=== PATIENT | female | born 1985 | race Hispanic/Latino ===

== ENCOUNTER 2020-01-20 07:21 | Inpatient (IN) | payer OTHER, SELFPAY ==
[2020-01-20] VITALS (65 sets, daily range): BP systolic 94–147; BP diastolic 58–102; PULSE 70–101; RESP 13–17; TEMP 36.2–36.7; O2SAT 99–100; BMI 38.9
--- NOTE | 2020-01-20 08:11 | LDADM ---
This patient, Ariana Fontana, was admitted to Labor/Delivery/Recovery 119 on 01/20/20 at 07:21. Plans for labor, pain management and were discussed with patient. Patient/family oriented to hospital policies and general routines including ID bracelet, bed and alarms, visiting hours, pain management, procedures, bathroom and other care routines, personal items, smoking policy, room service/diet and guest tray routines, infant security routines, and visiting hours. Patient/Family are encouraged to report perceived risks to care and to ask questions if they do not understand what they are told or what they should do. See OBIX for further documentation.
[2020-01-20 08:23] LABS: Basophils Percent Auto 0.2 % (0.2-1.2); Eosinophils Absolute Auto 0.1 K/mm3 (0-0.3); Eosinophils Percent Auto 1.4 % (0-4.4); Hematocrit 32.7 % (37.0-47.0); Hemoglobin 10.3 g/dL (12.0-15.0); Immature Granulocyte Absolute 0.06 K/mm3 (0.00-0.031); Immature Granulocyte Percent A 0.7 % (0-0.5); Lymphocytes Absolute Auto 2.46 K/mm3 (0.9-3.2); Lymphocytes Percent Auto 29.4 % (18.3-44.2); Mean Corpuscular HGB Conc 31.5 g/dl (32-36); Mean Corpuscular Hemoglobin 26.7 pg (26-34); Mean Corpuscular Volume 84.7 fl (80-100); Mean Platelet Volume 9.9 fl (7.4-10.4); Monocytes Absolute Auto 0.7 K/mm3 (0.1-0.6); Monocytes Percent Auto 8.1 % (2.6-8.5); Neutrophils Percent Auto 60.2 % (45.5-73.1); Platelet Count Result 456 k/mm3 (150-375); Red Blood Count 3.86 M/mm3 (4.2-5.4); Red Cell Distribution Width 15.7 % (11.5-14.5); White Blood Count 8.4 K/mm3 (4.5-10.0)
--- NOTE | 2020-01-20 08:26 | P.PNAN_ITS ---
Anes - Initial Pre Proc Eval Procedure: Operation Date: 01/20/20 09:00 Proposed Procedures p Repeat Section - Shashank Sagastume MD Date/Time: 01/20/20 08:26 Surgeon: Shashank Sagastume MD Pre Op Diagnosis: C SECTION Patient Data Age: 34 Gender: F Height: Weight: Last Vital Signs Pulse 91 01/20/20 08:16 BP 123/85 01/20/20 08:16 Laboratory Tests 01/20/20 01/20/20 08:17 08:17 WBC 8.4 K/mm3 K/mm3 (4.5-10.0) RBC 3.86 M/mm3 L M/mm3 (4.2-5.4) Hgb 10.3 g/dL L g/dL (12.0-15.0) Hct 32.7 % L % (37.0-47.0) MCV 84.7 fl fl (80-100) MCH 26.7 pg pg (26-34) MCHC 31.5 g/dl L g/dl (32-36) RDW 15.7 % H % (11.5-14.5) Plt Count 456 k/mm3 H k/mm3 (150-375) MPV 9.9 fl fl (7.4-10.4) Immature Gran % (Auto) 0.7 % H % (0-0.5) Neut % (Auto) 60.2 % % (45.5-73.1) Lymph % (Auto) 29.4 % % (18.3-44.2) [place] % (Auto) 8.1 % % (2.6-8.5) Eos % (Auto) 1.4 % % (0-4.4) Baso % (Auto) 0.2 % % (0.2-1.2) Lymph # (Auto) 2.46 K/mm3 K/mm3 (0.9-3.2) [place] # (Auto) 0.7 K/mm3 H K/mm3 (0.1-0.6) Eos # (Auto) 0.1 K/mm3 K/mm3 (0-0.3) Baso # (Auto) 0.0 K/mm3 K/mm3 (0.0-0.1) Abs Immat Gran (auto) 0.06 K/mm3 H K/mm3 (0.00-0.031) Absolute Neuts (auto) 5.0 K/mm3 K/mm3 (1.3-6.7) Absolute Nucleated RBC 0.0 K/mm3 K/mm3 (0.0-0.012) Nucleated RBC % 0.0 % % (0.0-0.2) RPR Pending Patient hx anesthesia problems: none Family hx anesthesia problems: none PMFSH Surgical History Surgical History (Updated 01/20/20 @ 08:26 by Cecil Motta MD) Previous delivery, delivered Anes - Eval Final PreProcedure Day of Procedure 01/20/20 08:26 Patient weight: normal Heart: regular rate and rhythm Lungs: clear to auscultation Airway: Mallampati scale class II Neurological: alert and oriented Last oral intake: >/= 8 hours ASA classification: II Emergent: no Anesthetic plan: proceed Anesthesia type and monitoring: regional spinal and standard monitoring Other findings: GA as back-up discussed thru rodding machine tender Informed Consent: The patient's anesthetic plan of spinal with GA as a back-up and its attendant risks and benefits were discussed with the patient/family and rodding machine tender. Questions were solicited and answers provided to the satisfaction of the patient/family and rodding machine tender.
[2020-01-20] MEDS: LACTATED RINGERS 1,000 ML 999 ML IV CONT (08:40)
--- NOTE | 2020-01-20 09:04 | P.HP_ITS ---
H&P: HPI History of Present Illness Chief complaint: C SECTION Narrative: Ariana Fontana is a 34 year old female 4 para 2011 who presents for repeat section. She is 39 weeks and 2 days by early ultrasound. care has been with Dr. Lyle Cobian in [facility]. No specific concerns or questions during her care/ records are on the chart. Review of Systems Constitutional: Constitutional: Reports no additional constitutional complaints Respiratory: Respiratory: Reports no additional respiratory complaints Gastrointestinal: Gastrointestinal: Reports no additional gastrointestinal complaints [facility] Surgical History Surgical History Previous delivery, delivered Social History Social History Smoking status: Never smoker Substance use: never Gender identity (if verbalized by the patient): Female Spiritual care concerns: No Meds Home Medications and Allergies Allergies Allergy/AdvReac Type Severity Reaction Status Date / Time No Known Allergies Allergy Verified 01/20/20 08:53 Vital Signs Vital Signs - 24 hr 01/20/20 08:01 01/20/20 08:02 01/20/20 08:16 Pulse Rate 88 89 91 Blood Pressure 117/81 119/84 123/85 Exam Const: General: healthy appearing Nutritional Appearance: average body habitus Resp: Auscultation: clear to auscultation bilaterally Cardio: Rate: regular rate Rhythm: regular rhythm GI: Inspection: other (FH 39cm/FHT 130) : External Female Exam: normal external appearance H&P: Results Labs Labs: Short CBC 01/20/20 Range/Units 08:17 WBC 8.4 (4.5-10.0) K/mm3 Hgb 10.3 L (12.0-15.0) g/dL Hct 32.7 L (37.0-47.0) % Plt Count 456 H (150-375) k/mm3 Assessment and Plan Additional Plan 1. Thirty-nine week 2 day into 2. Prior section x2 Plan is for repeat low transverse section. We have discussed tubal ligation and she does not desire.
--- NOTE | 2020-01-20 09:55 | PM.OBPRVD ---
OB - Delivery Note Procedure Delivery date: 01/20/20 Procedure: Procedures Operation Date: 01/20/20 09:00 <No data on this case meets the specified criteria> events: Previous Route of delivery: Specimen: No Estimated blood loss (mL): 400 Anesthesia type: Spinal Disposition: PACU Narrative: Patient prepped and draped the usual manner for this procedure a Pfannenstiel incision was made. Incision was then carried through the subcutaneous tissue to the fascia which was then extended bilaterally the skin incision. Graphical the clamps and from muscles. Peritoneum was entered without difficulty and bladder flap was developed. Uterus scored and extended lower segment. Vertex was delivered section naso-oropharynx arrest baby was delivered. Cord was clamped cut and delivered manually. Uterus was exteriorized cleared of membranes and clots and closed using 0 Monocryl in a running interlocking manner with good approximation hemostasis noted. Uterus returned to the abdomen there was 1 small area which was readily rhythm hemostatic using a [id number] suture on the uterine incision. Fascia was then approximated 0 Vicryl suture left angle to midline right angle to midline a running manner. Subcutaneous tissue approximated 0 plain suture. Deidra used to approximate skin edges. Patient tolerated procedure well sent to recovery in a stable condition. Baby Weeks of gestation at delivery: 39 gender: Male Weight (pounds): 6 Weight (ounces): 10 presentation: vertex Placenta delivery description: Manual Removal cord vessel description: 3 Vessels score one minute: 8 score five minutes: 9
[2020-01-20 10:56] LABS: Rapid Plasma Reagin Non-Reactive (NonReactive)
--- NOTE | 2020-01-20 16:23 | PC.NURSE ---
Patient transferred to post room #282 via stetcher. Used translater to orient patient to unit, room, information board, rooming in, admission packet and security measures. Patient verbalizes understanding.
[2020-01-20] MEDS: KETOROLAC 30 MG/ML VIAL (*BKC) IV PUSH (17:08)
[2020-01-20] MEDS: DEXTROSE 5%/0.45% SOD CHL 1,000 ML 125 ML IV CONT (18:08)
[2020-01-21 00:55] VITALS: BP 101/61; PULSE 80; RESP 14; TEMP 36.4; O2SAT 99
[2020-01-21] MEDS: KETOROLAC 30 MG/ML VIAL (*BKC) IV PUSH (01:56)
[2020-01-21 04:45] VITALS: BP 90/55; PULSE 82; RESP 12; TEMP 36.4; O2SAT 98
[2020-01-21 05:52] LABS: Basophils Percent Auto 0.4 % (0.2-1.2); Eosinophils Absolute Auto 0.1 K/mm3 (0-0.3); Eosinophils Percent Auto 0.8 % (0-4.4); Hematocrit 28.2 % (37.0-47.0); Immature Granulocyte Absolute 0.03 K/mm3 (0.00-0.031); Immature Granulocyte Percent A 0.3 % (0-0.5); Lymphocytes Absolute Auto 2.63 K/mm3 (0.9-3.2); Mean Corpuscular HGB Conc 31.9 g/dl (32-36); Mean Corpuscular Hemoglobin 27.2 pg (26-34); Mean Corpuscular Volume 85.2 fl (80-100); Mean Platelet Volume 10.2 fl (7.4-10.4); Neutrophils Absolute Auto 7.2 K/mm3 (1.3-6.7); Neutrophils Percent Auto 65.5 % (45.5-73.1); Platelet Count Result 393 k/mm3 (150-375); Red Blood Count 3.31 M/mm3 (4.2-5.4); White Blood Count 10.9 K/mm3 (4.5-10.0)
[2020-01-21 07:00] VITALS: BP 105/70; PULSE 80; RESP 16; TEMP 37.2; O2SAT 100
[2020-01-21] MEDS: MULTIVIT/MIN/PREN/FOL AC/IRON TABLET 1 TAB PO (07:24)
[2020-01-21] MEDS: POLYSACCHARIDE IRON COMPLEX 150 MG CAPSULE PO ×2 (07:24→17:24)
[2020-01-21] MEDS: IBUPROFEN 600 MG TABLET PO ×3 (07:24→20:31)
[2020-01-21] MEDS: DOCUSATE SODIUM 100 MG CAPSULE PO ×2 (07:24→14:41)
--- NOTE | 2020-01-21 09:48 | WPDANLDPN2 ---
Anes-Prog Note L&D Date/Time: 01/21/20 09:48 Comfortable throughout: section Neuraxial method: spinal Epidural/Spinal procedure site: clean & non-tender Neuro status: Neuro function grossly intact. Cardiovascular status: normal Respiratory status: normal Airway patency: baseline Mental status: baseline Post-Op hydration status: normal Vital Signs: Last Vital Signs Temp 37.2 C 01/21/20 07:00 Pulse 80 01/21/20 07:00 Resp 16 01/21/20 07:00 BP 105/70 01/21/20 07:00 Pulse Ox 100 01/21/20 07:00 I/O: Intake & Output 01/20/20 01/21/20 01/21/20 23:59 07:59 15:59 Intake Total 550 240 Output Total 750 1700 Balance -200 -1460 Post-procedural complaints: none Patient feedback: Patient satisfied with anesthetic care.
--- NOTE | 2020-01-21 09:48 | WPDANLDNPN2 ---
Anes-Prog Note L&D-Neuraxial Date/Time: 01/21/20 09:48 Neuraxial medications: intrathecal PF morphine Opiod-related complaints: none Patient feedback: Patient satisfied with post-operative pain management.
--- NOTE | 2020-01-21 12:40 | PM.OBPNVD ---
OB - PN: Subj Subjective Date/time seen: 01/21/20 12:40 Ariana is a 34yo now P3013 s/p rLTCS, POD#1 She reports doing well. She is tolerating regular diet w/o N/V. She has ambulated w/o s/sx of anemia. She has passed flatus and voided spontaneously. She reports normal vaginal bleeding. Her pain is controlled with pain medications. She is bottle feeding. She does not desire a circumcision for her son. OB - PN: Obj Data Labs CBC & Chem 7: 01/21/20 04:54 Labs: Laboratory Results - last 24 hr 01/21/20 04:54 WBC 10.9 H RBC 3.31 L Hgb 9.0 L Hct 28.2 L MCV 85.2 MCH 27.2 MCHC 31.9 L RDW 16.0 H Plt Count 393 H MPV 10.2 Immature Gran % (Auto) 0.3 Neut % (Auto) 65.5 Lymph % (Auto) 24.0 [place] % (Auto) 9.0 H Eos % (Auto) 0.8 Baso % (Auto) 0.4 Lymph # (Auto) 2.63 [place] # (Auto) 1.0 H Eos # (Auto) 0.1 Baso # (Auto) 0.0 Abs Immat Gran (auto) 0.03 Absolute Neuts (auto) 7.2 H Absolute Nucleated RBC 0.0 Nucleated RBC % 0.0 OB - PN A/P Plan day: 1 Plan: routine care Comments: - routine post-op care; meeting milestones - labs/vitals/exam stable - ye to be removed in 7-10 days - pain meds PRN - regular diet - ambulation encouraged - bottle feeding Time Spent With Patient Time: Total time spent is greater than 50% in coordination of care (as documented) at patient's floor/unit and/or counseling patient: Review of Systems Review of Systems: All systems reviewed & are unremarkable except as noted in HPI and below Exam Const: General: comfortable, no acute distress, alert and awake Resp: Effort & Inspection: normal respiratory effort Auscultation: clear to auscultation bilaterally Cardio: Rate: regular rate GI: Auscultation: normal bowel sounds Other: incision covered with clean bandage : Other: normal lochia noted on pad Psych: Appearance: grossly normal and well kempt Affect: normal affect Attitude: cooperative
[2020-01-21 20:20] VITALS: BP 118/59; PULSE 89; RESP 14; TEMP 36.9; O2SAT 98
[2020-01-22] MEDS: IBUPROFEN 600 MG TABLET PO ×2 (05:55→12:54)
[2020-01-22 08:30] VITALS: BP 126/75; PULSE 92; RESP 18; TEMP 37.2; O2SAT 97
[2020-01-22] MEDS: DOCUSATE SODIUM 100 MG CAPSULE PO (08:36)
[2020-01-22] MEDS: POLYSACCHARIDE IRON COMPLEX 150 MG CAPSULE PO (08:36)
[2020-01-22] MEDS: MULTIVIT/MIN/PREN/FOL AC/IRON TABLET 1 TAB PO (08:36)
--- NOTE | 2020-01-22 09:05 | PM.OBPNVD ---
OB - PN: Subj Subjective Date/time seen: 01/22/20 09:05 Ariana is a 34yo now P3013 s/p rLTCS, POD#2 She reports doing well. She is tolerating regular diet w/o N/V. She has ambulated w/o s/sx of anemia. She has not passed flatus today and feels bloated. She is voiding spontaneously. She reports normal vaginal bleeding. She reports pain; but states it is significantly better with pain medications. She is bottle feeding. She desires to be discharged home today. No CP, GOLDSMITH, SOB, vision changes, fever, chills. OB - PN: Obj Data Labs CBC & Chem 7: 01/21/20 04:54 OB - PN A/P Plan day: 2 Plan: routine care and discharge home Comments: - routine post-op care; meeting all milestones - labs/vitals/exam stable - ye to be removed in 5 days-- pt to make appt for removal - pain meds PRN-- rx's sent to pharmacy - regular diet-- ok to give simethicone and rectal suppository - ambulation encouraged - bottle feeding - ER return precautions reviewed. No heavy lifting >10lbs and pelvic rest x6 weeks Time Spent With Patient Time: Total time spent is greater than 50% in coordination of care (as documented) at patient's floor/unit and/or counseling patient: Review of Systems Review of Systems: All systems reviewed & are unremarkable except as noted in HPI and below Exam Const: General: comfortable, no acute distress, alert and awake Resp: Effort & Inspection: normal respiratory effort Auscultation: clear to auscultation bilaterally Cardio: Rate: regular rate GI: Auscultation: normal bowel sounds Other: mildly distended, soft, appropriately tender to palpation, pfannenstiel incision, clean, dry, intact, closed with ye, no surrounding erythema or induration : Other: normal lochia Psych: Appearance: grossly normal and well kempt Attitude: cooperative
--- NOTE | 2020-01-22 10:59 | PC.NURSE ---
Patient viewed the discharge video Mother & Baby Care, The First Two Weeks . Patient was given the opportunity and encouraged to ask questions. Patient verbalized understanding of information shared and has been given the mother/baby guide for home reference.
--- NOTE | 2020-01-24 09:58 | PM.OBDSVD ---
OB - DS: Summary OB Procedures : None OB Procedures Intrapartum: OB Procedures: : None Peripartum Data Procedures: Procedures Operation Date: 01/20/20 09:00 Actual Procedures Side Surgeon p Repeat Section Shashank Sagastume MD Time Spent with Patient Time attestation: Total time spent providing and/or coordinating discharge services: Discharge Plan Discharge Attending physician on discharge: Ani Jacob Discharging Clinician: Ani Jacob Patient Disposition: Home, Self-Care Activity: pelvic rest and other - see discharge instructions Diet: regular Wound Care Instructions: other - see discharge instructions Discharge Instructions: No levante mas 10 libras para 6 semanas, y poner nada en la vagina para 6 semanas. Regreso a la kamaljit de emergencia tiene fiebre, nauseas, vomitos, delor de florence, cambios en la vision, o sangrando vaginal mucho. Necesitas eliminacion de grapas en 5 felder (sana de Marzo). Por favor, llama la oficina para programar freddy braeden. Education: Mom and Baby Guide Given to: Mother Follow-Up: Call your delivering provider's office for an appointment to be seen in: Staple removal January 25, call for appointment Mom and baby should come to the [facility] for the follow-up appointment. Appointment Date/Time: January 24, 2020 at 8:00 am What to expect at your follow-up visit: Physical Assessment Call [phone] if you are unable to keep your appointment time. BREAST CARE: 1. Wear a snug supportive bra. Bottle Feeding: A. May apply ice packs ABDOMINAL INCISION: (if applicable) 1. Allow incision to air dry 2. Do NOT use lotions for powders on your incision 3. When showering, allow soap and water to run over the incision, but do not wash incision EPISIOTOMY/PERINEAL CARE: 1. Change your pad frequently throughout the day 3. No tub baths until seen by your physician - You may shower ACTIVITY: 1. Rest as much as possible. 2. Do not exercise or lift anything heavier than your baby (such as laundry or other children.) 3. Avoid stairs or driving as much as possible. 4. Do not put anything into the vagina. No douching, tampons, or sexual activity until seen by physician. NOTIFY PHYSICIAN IF YOU HAVE ANY QUESTIONS OR IF ANY OF THE FOLLOWING SYMPTOMS OCCUR: 1. If your incision becomes red, swollen, or more painful than what you have experienced in the hospital. 2. If your vaginal bleeding becomes foul smelling. 3. If your vaginal bleeding becomes more heavy than a period or if your bleeding changes from pink to bright red. However, you may pass an occasional walnut-sized clot once or twice for the first week . 4. If you experience a sharp, shooting pain in you calves. 5. If you discover a hard, reddened area on your breast or if you experience flu-like symptoms. DIET: 1. Eat regular, well-balanced meals. 2. Drink plenty of fluids daily. Patient Language: Hong Konger Stand Alone Forms: General Discharge Information Follow-up/Referrals: Ani Jacob MD [Physician] - Discharge Medications: New hydrocodone-acetaminophen 5-325 mg Tablet 1 tab PO Q4H PRN (Reason: Moderate Pain (4-6)) 3 Days Qty: 18 RF: 0 docusate sodium 100 mg Capsule 100 mg PO BID 30 Days Qty: 60 RF: 0 ibuprofen 600 mg Tablet 600 mg PO Q6H PRN (Reason: Cramping) 10 Days Qty: 40 RF: 0 Date of admission: 01/20/20 07:21 Primary Care Provider: Soy,Jose Foss Admitting Provider: Shashank Sagastume Discharge Date/Time: 01/22/20 13:15 Attending physician on admission: Shashank Sagastume Condition: Stable
--- NOTE | 2020-01-25 13:19 | PM.OBDSVD ---
DS: Diagnosis Admitting Diagnosis Admitting Diagnosis: Encounter for supervision of normal , unspecified, third trimester OB - DS: Summary OB Procedures : None OB Procedures Intrapartum: OB Procedures: : None Peripartum Data Procedures: Procedures Operation Date: 01/20/20 09:00 Actual Procedures Side Surgeon p Repeat Section Shashank Sagastume MD Time Spent with Patient Time attestation: Total time spent providing and/or coordinating discharge services: Discharge Plan Discharge Attending physician on discharge: Ani Jacob Consulting providers: Cecil Motta Discharging Clinician: Ani Jacob Patient Disposition: Home, Self-Care Activity: pelvic rest and other - see discharge instructions Diet: regular Wound Care Instructions: other - see discharge instructions Discharge Instructions: No levante mas 10 libras para 6 semanas, y poner nada en la vagina para 6 semanas. Regreso a la kamaljit de emergencia tiene fiebre, nauseas, vomitos, delor de florence, cambios en la vision, o sangrando vaginal mucho. Necesitas eliminacion de grapas en 5 felder (sana de Marzo). Por favor, llama la oficina para programar freddy braeden. Education: Mom and Baby Guide Given to: Mother Follow-Up: Call your delivering provider's office for an appointment to be seen in: Staple removal January 25, call for appointment Mom and baby should come to the [facility] for the follow-up appointment. Appointment Date/Time: January 24, 2020 at 8:00 am What to expect at your follow-up visit: Physical Assessment Call [phone] if you are unable to keep your appointment time. BREAST CARE: 1. Wear a snug supportive bra. Bottle Feeding: A. May apply ice packs ABDOMINAL INCISION: (if applicable) 1. Allow incision to air dry 2. Do NOT use lotions for powders on your incision 3. When showering, allow soap and water to run over the incision, but do not wash incision EPISIOTOMY/PERINEAL CARE: 1. Change your pad frequently throughout the day 3. No tub baths until seen by your physician - You may shower ACTIVITY: 1. Rest as much as possible. 2. Do not exercise or lift anything heavier than your baby (such as laundry or other children.) 3. Avoid stairs or driving as much as possible. 4. Do not put anything into the vagina. No douching, tampons, or sexual activity until seen by physician. NOTIFY PHYSICIAN IF YOU HAVE ANY QUESTIONS OR IF ANY OF THE FOLLOWING SYMPTOMS OCCUR: 1. If your incision becomes red, swollen, or more painful than what you have experienced in the hospital. 2. If your vaginal bleeding becomes foul smelling. 3. If your vaginal bleeding becomes more heavy than a period or if your bleeding changes from pink to bright red. However, you may pass an occasional walnut-sized clot once or twice for the first week . 4. If you experience a sharp, shooting pain in you calves. 5. If you discover a hard, reddened area on your breast or if you experience flu-like symptoms. DIET: 1. Eat regular, well-balanced meals. 2. Drink plenty of fluids daily. Patient Language: Russian Stand Alone Forms: General Discharge Information Follow-up/Referrals: Ani Jacob MD [Physician] - Discharge Medications: New hydrocodone-acetaminophen 5-325 mg Tablet 1 tab PO Q4H PRN (Reason: Moderate Pain (4-6)) 3 Days Qty: 18 RF: 0 docusate sodium 100 mg Capsule 100 mg PO BID 30 Days Qty: 60 RF: 0 ibuprofen 600 mg Tablet 600 mg PO Q6H PRN (Reason: Cramping) 10 Days Qty: 40 RF: 0 Date of admission: 01/20/20 07:21 Primary Care Provider: Fransisco,Jose Foss Admitting Provider: Shashank Sagastume Discharge Date/Time: 01/22/20 13:15 Attending physician on admission: Ani Jacob Condition: Stable
== END 2020-01-22 13:15 | disposition home or self-care (01) | DRG 540 ==
LOC: ANHOB2 01-22 10:21 → ANHLDR 01-24 12:05 → ANHOB2 01-24 12:05
PROVIDERS: Admitting Provider Obstetrics & Gynecology; PCP Obstetrics & Gynecology; Visit Provider Obstetrics & Gynecology
PROC: 10D00Z1 Extraction of Products of Conception, Low, Open Approach (ICD-10-PCS; CPT 59514; principal; 2020-01-20 09:00)
DX: O34.211 Maternal care for low transverse scar from previous cesarean delivery (principal); O99.824 Streptococcus B carrier state complicating childbirth; Z3A.39 39 weeks gestation of pregnancy; Z37.0 Single live birth
CPT/HCPCS: 36415; 85025; 86592; 86850; 86900; 86901; A9270; J0131; J1885; J2274; J2590; J3010; J7120

== ENCOUNTER 2021-04-25 11:11 | Emergency (ER) | payer OTHER, SELFPAY ==
--- NOTE | 2021-04-25 11:21 | ED.GENADULT ---
HPI - General Adult General Chief complaint: Wound/Laceration Stated complaint: The toenail on foot is ingrown Time Seen by Provider: 04/25/21 11:21 Source: patient, RN notes reviewed and slag worker (heladio-Nikita) Mode of arrival: ambulatory Limitations: language barrier History of Present Illness HPI narrative: 36-year-old female presents with complaints of LT foot and great toe with tenderness for months. Ariana reports attempting to remove ingrown toenail with a pair of scissors without success. ?Pain throughout bottom of foot and increases with walking. Believes ingrown toenail is causing great toe and foot pain. ?No medication treatment. No known injury. ?Wears flat shoes mostly. ?Denies redness. Denies numbness or tingling, or weakness. Denies fever or chills. ?Denies immobility. ?Exacerbation is movement and bearing weight. ?No relieving factors. No break in skin or drainage. ?Denies history of MRSA. ?Immunizations up-to-date. ?LMP 6 months ago due to Depo-Provera. Remains active. The patient reports she has not been diagnosed with COVID-19. ?The patient reports she received the Laith-Laith COVID-19 vaccine. ?The patient reports she is not waiting for the results of a COVID-19 lab test. ?The patient reports she does not have a new or worsening cough or shortness of breath. Denies chest pain. ?The patient reports she does not have any rhinorrhea, congestion, sore throat, and diarrhea. Denies recent traveling. ?Denies concerns for COVID-19 or exposures. ?At this time, the patient is not suspected of having COVID-19. Some parts of this dictation were generated by voice recognition software and may contain typographical and/or grammatical inaccuracies. Related Data Home Medications Medication Instructions Recorded Confirmed Depo-Provera Contraceptive 04/25/21 Allergies Allergy/AdvReac Type Severity Reaction Status Date / Time No Known Allergies Allergy Verified 01/20/20 08:53 Review of Systems Review of Systems: Narrative: CONSTITUTIONAL: Denies fever, chills, sweats. EYES: Denies visual changes, redness, discharge. ENT: Denies rhinorrhea, congestion, sore throat, otalgia. CARDIOVASCULAR: Denies chest pain, palpitations, edema. RESPIRATORY: Denies dyspnea, wheezing, cough GASTROINTESTINAL: Denies abdominal pain, nausea, vomiting, diarrhea. GENITOURINARY: Denies dysuria, hematuria, abnormal discharge SKIN: Denies rash or itching. MUSCULOSKELETAL: Denies acute back pain or myalgia. Complains of LT foot and great toe tenderness. Denies drainage, swelling, warmth, and redness. NEUROLOGIC: Denies numbness or focal weakness. PSYCHIATRIC: Denies anxiety or depression. All other systems reviewed are negative, except as documented in HPI and below. [facility] Past Medical History Medical History (Updated 04/26/21 @ 00:00 by Jammie Bell) delivery delivered Surgical History Surgical History Previous delivery, delivered Family History Family History (Updated 04/25/21 @ 12:01 by VIRGEN Spears) Father , murdered Family history unknown Mother Alive and well Social History Social History (Updated 04/25/21 @ 12:02 by VIRGEN Spears) Smoking status: Never smoker Tobacco type: cigarettes Second hand tobacco smoke exposure: No Alcohol intake: never Substance use: never Living arrangements: with family Occupation/Education: unemployed Gender identity (if verbalized by the patient): Female Sexual Orientation (if Verbalized by the Patient): Straight or Heterosexual Spiritual care concerns: No Comments At time of signature, agree with the nurse past medical, surgical, social, and family history. There is no relevant family history pertinent to the presenting complaint. Exam Narrative: Exam Narrative: GENERAL: This is a well-nourished, well-developed patient, in no apparent distress. Talk
[2021-04-25 11:22] VITALS: BP 119/81; PULSE 82; RESP 16; TEMP 37.2; O2SAT 99
== END 2021-04-25 12:01 | disposition home or self-care (01) ==
PROVIDERS: Emergency Provider Nurse Practitioner Family
DX: M77.42 Metatarsalgia, left foot (principal)
CPT/HCPCS: 99213; G0463

== ENCOUNTER 2023-07-04 17:00 | Emergency (ER) | payer OTHER, SELFPAY ==
--- NOTE | ~2023-07-04 | US_ITS ---
EXAMINATION: US OB <=14 wk fetus w TV DATE: 07/04/2023 19:58 INDICATION: Vaginal bleeding. . TECHNIQUE: Real-time transabdominal and transvaginal pelvic ultrasound was performed. COMPARISON: None. FINDINGS: TRANSABDOMINAL ULTRASOUND: The uterus measures 13.9 x 4.3 x 6.7 cm. The right ovary measures 2.0 x 2 .3 x 1.5 cm. The left ovary measures 2.1 x 2.1 x 1.4 cm. TRANSVAGINAL ULTRASOUND: There is a gestational sac in the cervix. The crown rump length measur es 7 mm, which correlates with an estimated gestational age of 6 weeks and 4 day(s). heart luca on is not identified by M-mode Doppler. There is no free fluid in the pelvis. IMPRESSION: 1. Failed in the cervix. Reviewed, dictated and finalized at location E. IMPRESSION: 1. Failed in the cervix.
[2023-07-04 17:06] VITALS: BP 140/82; PULSE 100; RESP 21; O2SAT 100
[2023-07-04 17:30] LABS: Basophils Absolute Auto 0.1 K/mm3 (0.0-0.1); Basophils Percent Auto 0.3 % (0.2-1.2); Eosinophils Absolute Auto 0.2 K/mm3 (0-0.3); Eosinophils Percent Auto 0.8 % (0-4.4); Hematocrit 37.5 % (37.0-47.0); Hemoglobin 12.4 g/dL (12.0-15.0); Immature Granulocyte Absolute 0.12 K/mm3 (0.00-0.031); Immature Granulocyte Percent A 0.5 % (0-0.5); Lymphocytes Percent Auto 23.3 % (18.3-44.2); Mean Corpuscular HGB Conc 33.1 g/dl (32-36); Mean Corpuscular Hemoglobin 30.2 pg (26-34); Mean Corpuscular Volume 91.5 fl (80-100); Mean Platelet Volume 9.2 fl (7.4-10.4); Monocytes Percent Auto 4.4 % (2.6-8.5); Neutrophils Absolute Auto 15.5 K/mm3 (1.3-6.7); Neutrophils Percent Auto 70.7 % (45.5-73.1); Platelet Count Result 481 k/mm3 (150-375); Red Cell Distribution Width 12.8 % (11.5-14.5); White Blood Count 21.9 K/mm3 (4.5-10.0)
[2023-07-04] MEDS: ONDANSETRON INJ 4 MG/2 ML VIAL (17:31)
[2023-07-04 17:38] LABS: Platelet Estimate Increased (Adequate)
[2023-07-04 17:39] LABS: Atypical Lymphocytes Present; Schistocytes None Seen (NORMAL)
[2023-07-04] MEDS: MORPHINE SULFATE (*CRX) 4 MG/ML INJ (17:40)
--- NOTE | 2023-07-04 17:47 | ED.PREGNANCY ---
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 Ongoing over the last 5 days. Associated with pelvic cramping. Reports she is about 11 weeks by LMP. She was seen at [facility], [place] yesterday and discharged with ciprofloxacin and [place]. She does not have a OB currently. Denies fever or vomiting. <SYEDA Ames Last Filed: 07/04/23 21:01> Related Data Home medications: Home Medications Medication Instructions Recorded Confirmed Depo-Provera Contraceptive 04/25/21 <SYEDA Ames Last Filed: 07/04/23 21:01> Allergies/Adverse reactions: Allergies Allergy/AdvReac Type Severity Reaction Status Date / Time No Known Allergies Allergy Verified 01/20/20 08:53 <SYEDA Ames Last Filed: 07/04/23 21:01> Review of Systems Review of Systems: CONSTITUTIONAL: Denies fever GASTROINTESTINAL: Reports abdominal pain, nausea. Denies vomiting GENITOURINARY: Denies dysuria <SYEDA Ames Last Filed: 07/04/23 21:01> All systems reviewed & are unremarkable except as noted in HPI and below <SYEDA Ames Last Filed: 07/04/23 21:01> [facility] Past Medical History Medical History: Medical History (Updated 07/05/23 @ 00:00 by Jammie Bell) delivery delivered <Yi Rodgers PA-C - Last Filed: 07/04/23 21:01> Surgical History Surgical History: Surgical History Previous delivery, delivered <Yi Rodgers PA-C - Last Filed: 07/04/23 21:01> Family History Family History: Family History (Updated 04/25/21 @ 12:01 by VIRGEN Spears) Father , murdered Family history unknown Mother Alive and well <Yi Rodgers PA-C - Last Filed: 07/04/23 21:01> Social History Social History: Social History (Updated 04/25/21 @ 12:02 by VIRGEN Spears) Smoking status: Never smoker Tobacco type: cigarettes Second hand tobacco smoke exposure: No Alcohol intake: never Substance use: never Living arrangements: with family Occupation/Education: unemployed Gender identity (if verbalized by the patient): Female Sexual Orientation (if Verbalized by the Patient): Straight or Heterosexual Spiritual care concerns: No <SYEDA Ames Last Filed: 07/04/23 21:01> Exam Narrative: GENERAL: Well-appearing, well-nourished, and in mild acute distress due to pain HEAD: Normocephalic, atraumatic. EYES: EOMI. CHEST: Clear to auscultation. No respiratory distress. No wheezes rales or rhonchi HEART: Regular rate and rhythm. No murmur heard. Normal peripheral pulses. ABDOMEN: Soft, nontender, nondistended, normal active bowel sounds. EXTREMITIES: Normal range of motion. No edema. SKIN: Warm, dry, no rash. NEURO: No focal deficits. Alert and oriented x3. PSYCH: Normal mood and affect PELVIC: Cervix is open, dark red blood blood and blood clots in the vaginal vault <Yi Rodgers PA-C - Last Filed: 07/04/23 21:01> Course Course Emergency Course: Patient and family updated on work-up and agree with plan of care <Yi Rodgers PA-C - Last Filed: 07/04/23 21:01> AUTOMATIC OVEN OPERATOR/PA Physician Supervision This is a was performed by both a physicia
[2023-07-04 17:53] VITALS: PULSE 103; RESP 19; O2SAT 99
[2023-07-04 18:01] VITALS: BP 124/79; PULSE 105; RESP 22; O2SAT 98
[2023-07-04 18:03] LABS: Beta HCG Quantitative 302.01 mIU/ML
[2023-07-04 18:06] VITALS: PULSE 108; RESP 19; O2SAT 98
--- NOTE | 2023-07-04 18:18 | PC.NURSE ---
Pt called out in pain, EDP notified of pain and pt request for pain medication.
[2023-07-04 18:27] VITALS: PULSE 114; RESP 22
--- NOTE | 2023-07-04 18:30 | PC.NURSE ---
ultra sound called in
--- NOTE | 2023-07-04 19:23 | PC.NURSE ---
Patient to Ultrasound
[2023-07-04 19:32] LABS: Alanine Aminotransferase 15 U/L (6-35); Albumin Level 3.9 g/dL (3.5-5.1); Alkaline Phosphatase 81 U/L (38-126); Anion Gap 10 mmol/L (8-16); Aspartate Amino Transferase 21 U/L (14-36); Bilirubin,Total 0.2 mg/dL (0.2-1.3); Blood Urea Nitrogen 10 mg/dL (7-17); Calcium 8.5 mg/dL (8.4-10.2); Carbon Dioxide 23 mmol/L (22-30); Chloride 101 mmol/L (98-107); Estimated Glomerular Filt Rate > 60; Glucose 118 mg/dL (65-110); Lipase 38 U/L (23-300); Potassium 3.2 mmol/L (3.4-5.0); Sodium 134 mmol/L (137-145)
[2023-07-04] MEDS: SODIUM CHLORIDE 0.9% IV 1,000 ML 999 ML IV CONT (20:39)
[2023-07-04] MEDS: IBUPROFEN IV 400 MG in SODIUM CHLORIDE 0.9% IV 100 ML 200 MG IVPB (21:14)
[2023-07-04] MEDS: POTASSIUM CHLORIDE 20 MEQ ER TABLET 40 MEQ PO (21:14)
[2023-07-04] MEDS: miSOPROStol 200 MCG TABLET 600 MCG BY MOUTH (22:16)
[2023-07-04 22:25] VITALS: BP 109/74; PULSE 91; RESP 16; TEMP 37.4; O2SAT 98
== END 2023-07-04 22:37 | disposition home or self-care (01) ==
PROVIDERS: Preventive Medicine Aerospace Medicine; Emergency Provider Physician Assistant
DX: O03.4 Incomplete spontaneous abortion without complication (principal); E87.6 Hypokalemia
CPT/HCPCS: 36415; 76801; 76817; 80053; 83690; 84702; 85025; 85461; 86850; 86900; 86901; 96361; 96365; 96375; 99284; A9270; J1741; J2270; J2405; J7030

== ENCOUNTER 2023-07-06 17:42 | Emergency (ER) | payer OTHER, SELFPAY ==
[2023-07-06] VITALS (10 sets, daily range): BP systolic 111–121; BP diastolic 69–83; PULSE 78; RESP 16; TEMP 36.7–36.9; O2SAT 98–100
--- NOTE | ~2023-07-06 | US_ITS ---
EXAMINATION: US pelvic complete w TV DATE: 07/06/2023 20:58 INDICATION: r/o retained products of conception TECHNIQUE: Multiple transabdominal and endovaginal sonographic images of the pelvis were obtained. COMPARISON: None. FINDINGS: Uterus: 8.5 x 4.5 cm. Heterogeneous and avascular endometrial and endocervical echogenic material jh t moves independently of the uterus and cervix. Endometrial complex measures 22 mm. Hypoechoic area i n the endometrial cavity in the distal ureters, unlikely to represent a retained gestational sac give n the size and location of the gestational sac in the prior study, possible focal hematoma with clot retraction. Right Ovary: 3.0 x 1.7 x 1.5 cm. Vascular flow is present. No adnexal mass Left Ovary: 2.9 x 2.2 x 1.5 cm. Vascular flow is present. No adnexal mass There is no free fluid in the pelvis. IMPRESSION: Possible retained abnormal gestational sac and pole. Endometrial cavity and endocervical echoge karen material likely representing hemorrhage/hematoma. Recommend continued close sonographic follow-up . Reviewed, dictated and finalized at location K. IMPRESSION: Possible retained abnormal gestational sac and pole. Endometrial cavity a nd endocervical echogenic material likely representing hemorrhage/hematoma. Rec ommend continued close sonographic follow-up.
[2023-07-06 18:34] LABS: Basophils Percent Auto 0.3 % (0.2-1.2); Eosinophils Absolute Auto 0.2 K/mm3 (0-0.3); Eosinophils Percent Auto 1.9 % (0-4.4); Hematocrit 34.1 % (37.0-47.0); Hemoglobin 10.9 g/dL (12.0-15.0); Immature Granulocyte Absolute 0.05 K/mm3 (0.00-0.031); Immature Granulocyte Percent A 0.4 % (0-0.5); Lymphocytes Absolute Auto 3.22 K/mm3 (0.9-3.2); Lymphocytes Percent Auto 28.2 % (18.3-44.2); Mean Corpuscular Hemoglobin 29.4 pg (26-34); Mean Corpuscular Volume 91.9 fl (80-100); Mean Platelet Volume 8.9 fl (7.4-10.4); Monocytes Absolute Auto 0.9 K/mm3 (0.1-0.6); Monocytes Percent Auto 7.7 % (2.6-8.5); Neutrophils Percent Auto 61.5 % (45.5-73.1); Platelet Count Result 461 k/mm3 (150-375); Red Blood Count 3.71 M/mm3 (4.2-5.4); Red Cell Distribution Width 12.9 % (11.5-14.5); White Blood Count 11.4 K/mm3 (4.5-10.0)
[2023-07-06 18:45] LABS: Platelet Estimate Increased (Adequate)
[2023-07-06 18:46] LABS: Atypical Lymphocytes Present; Schistocytes None Seen (NORMAL)
--- NOTE | 2023-07-06 22:11 | ED.FEMALEGU ---
HPI - Female Genitourinary General Chief complaint: Vaginal Bleeding <Marissa Damon PA-C - Last Filed: 07/07/23 03:21> Stated complaint: r/o miscarriage <SYEDA Shook Last Filed: 07/07/23 03:21> Time Seen by Provider: 07/06/23 19:21 <Marissa Damon PA-C - Last Filed: 07/07/23 03:21> History of Present Illness HPI Narrative: 38-year-old Faroese-speaking female, G5, P2, LMP 04/05 reports for evaluation for vaginal bleeding after being diagnosed with a miscarriage 8 days ago. Patient states she was approximately 11 weeks when she was diagnosed with a miscarriage. She reports having vaginal bleeding for 8 days, requiring her to change her pad 5 times per day. She denies bleeding through 1 pad per hour. She was evaluated in the emergency department on 07/04, the case was discussed with VP ANCILLARY on-call and the patient was provided a suppressed oral vaginal suppository. She followed up with an VP ANCILLARY [facility] who gave her oral misoprostol at 1300 today and advised her to come to [facility] for an ultrasound. The patient reported today with abdominal pain and cramping. She denies known fever, vomiting, urinary complaints, lightheadedness or dizziness, syncope, chest pain or shortness of breath. States she only came because her VP ANCILLARY advised her to come here for repeat ultrasound. <Marissa Damon PA-C - Last Filed: 07/07/23 03:21> Related Data Home medications: Home Medications Medication Instructions Recorded Confirmed Depo-Provera Contraceptive 04/25/21 <SYEDA Shook Last Filed: 07/07/23 03:21> Allergies/Adverse reactions: Allergies Allergy/AdvReac Type Severity Reaction Status Date / Time No Known Allergies Allergy Verified 01/20/20 08:53 <Marissa Damon PA-C - Last Filed: 07/07/23 03:21> Review of Systems Review of Systems: CONSTITUTIONAL: Denies fever, chills EYES: Denies visual changes, redness, or discharge. ENT: Denies rhinorrhea, congestion, sore throat, or otalgia. CARDIOVASCULAR: Denies chest pain, palpitations, or edema. RESPIRATORY: Denies cough or dyspnea. GASTROINTESTINAL: See HPI GENITOURINARY: Denies dysuria or hematuria. SKIN: Denies rash or itching. MUSCULOSKELETAL: Denies back pain, joint pain, or myalgia. NEUROLOGIC: Denies headache, numbness, dizziness, or weakness. PSYCHIATRIC: Denies anxiety or depression. <Marissa Damon PA-C - Last Filed: 07/07/23 03:21> [facility] Past Medical History Medical History: Medical History delivery delivered <Marissa Damon PA-C - Last Filed: 07/07/23 03:21> Surgical History Surgical History: Surgical History Previous delivery, delivered <Marissa Damon PA-C - Last Filed: 07/07/23 03:21> Family History Family History: Family History Father , murdered Family history unknown Mother Alive and well <Marissa Damon PA-C - Last Filed: 07/07/23 03:21> Social History Social History: Social History Smoking status: Never smoker Tobacco type: cigarettes Second hand tobacco smoke exposure: No Alcohol intake: never Substance use: never Living arrangements: with family Occupation/Education: unemployed Gender identity (if verbalized by the patient): Female Sexual Orientation (if Verbalized by the Patient): Straight or Heterosexual Spiritual care concerns: No <Marissa Damon PA-C - Last Filed: 07/07/23 03:21> Exam Narrative: GENERAL: Well-appearing, in no acute distress. Patient resting comfortably in exam bed. She is pleasant and conversational. HEAD: Normocephalic EYES: PERRLA ENT: Nares clear. Mucous membranes moist. Oropharynx wit
== END 2023-07-06 22:39 | disposition home or self-care (01) ==
PROVIDERS: Emergency Medicine; Emergency Provider Physician Assistant
DX: O03.4 Incomplete spontaneous abortion without complication (principal)
CPT/HCPCS: 36415; 76830; 76856; 84702; 85025; 85461; 86850; 86900; 86901; 99284